=== PATIENT | male | born 1970 ===

== ENCOUNTER → 2017-04-26 | Day surgery (SDC) | payer OTHER ==
--- NOTE | 2017-04-25 16:39 | History and Physical: Surg Cnt ---
History & Physical Date Apr 25, 2017. Chief Complaint swelling History of Present Illness The patient is a 46 year old male with complaints of right sublingual mass Additional History Hepatic Disease: No Endocrine Disorder: No Kidney Disease: No Hypertension: No Heart Disease: No Bleeding Tendencies: No Infectious Diseases: No Allergies Coded Allergies: Codeine (Verified Allergy, Unknown, ., 04/25/17) Infliximab (Verified Allergy, Unknown, ., 04/25/17) Penicillins (Verified Allergy, Unknown, ., 04/25/17) Home Medications Unable to Obtain Active Prescriptions or Reported Meds Physical Examination Skin: warm/dry, no rash Eyes: normal inspection, EOMI, sclerae normal ENT: normal ENT inspection, pharynx normal Head: normocephalic, atraumatic Neck: supple, no adenopathy, trachea midline Respiratory/Chest: lungs clear, normal breath sounds, no respiratory distress Cardiovascular: regular rate, rhythm, no edema, no murmur Abdomen / GI: normal bowel sounds, non tender Back: normal inspection Extremities: normal inspection, normal range of motion Neurologic/Psych: no motor/sensory deficits, alert, normal reflexes, oriented x 3 Diagnosis right sublingual mass Plan of Treatment excision right sublingual mass
[~2017-04-26] VITALS: Wt 88.5 kg
[~2017-04-26] MED LIST: ATROPINE SULFATE 0.1 MG/ML 5ML SYR IV PRN; BENZOCAIN/TETRACA/BUTAM SPRAY 200 APPLN/20 GM SPRY ONE; CEFAZOLIN SOD 2000MG/10 ML IV PUSH IV ONE; DEXAMETHASONE SOD INJ 4 MG/ML VIAL ONE; EpHEDrine SULFATE INJ 50 MG/ML AMP IV PRN; FENTANYL CITRATE INJ 50 MCG/1 ML 2 ML VIAL IV PRN; FENTANYL CITRATE INJ 50 MCG/1 ML 2 ML VIAL ONE; HYDROmorphone INJ 1 MG/ML SYR IV PRN; IMD/2 PO; LACTATED RINGER'S 1000ML 1,000 ML IV SCH; LIDO 2%/EPINEPHRINE 1:100000 20 ML VIAL INFIL ONE; LIDOCAINE HCL 2% 2 ML VIAL (20MG/ML) ONE; LISI10TA PO; MIDAZOLAM HCL 1 MG/ML 2ML VIAL ONE; MUPIROCIN 2% OINT 22 GM TUBE ONE; ONDANSETRON INJ 2 MG/ML 2 ML VIAL IV PRN; ONDANSETRON INJ 2 MG/ML 2 ML VIAL ONE; OXYC-57 PO; OXYCODONE/ACETAMINOPHEN 5-325 TAB ONE; OXYCODONE/ACETAMINOPHEN 5-325 TAB PO PRN; PRLSR20 PO; PROMETHAZINE HCL INJ 12.5 MG in SODIUM CHLORIDE 0.9% 50ML 50 ML IV PRN; PROPOFOL IV EMULSION 10 MG/ML 20 ML VIAL IV ONE; SODIUM CHLORIDE 0.9% 1000ML 1,000 ML IV SCH; SULF500T36 PO
--- NOTE | 2017-04-26 09:03 | History & Physical Bridge Note ---
H&P Re-Evaluation Bridge Note: I have examined the patient, reviewed the History & Physical and in the interval since the performance of the History & Physical I have noted the following changes of clinical significance: No changes noted
[2017-04-26 14:37] VITALS: TEMP 37.2
--- NOTE | 2017-04-26 14:46 | [facility] Post Operative Brief Note ---
Immediate Operative Summary Operative Date Apr 26, 2017. Pre-Operative Diagnosis Right Sublingual Mass Post-Operative Diagnosis Same Procedure(s) Performed Right Sublingual Mass Excision Surgeon Dr. Mackenzie Cafeteria Cook Surgeon(s) None Estimated Blood Loss 10 ml Findings Mucocele right sublingual gland Specimens A. Right Sublingual Mass Drains none Anesthesia local with sedation Complication(s) None Disposition Recovery Room / PACU
--- NOTE | 2017-04-26 14:49 | [facility] Operative Report ---
Operative Report Operative Date Apr 26, 2017. Pre-Operative Diagnosis Right Sublingual Mass Post-Operative Diagnosis Same Procedure(s) Performed Right Sublingual Mass Excision Surgeon Dr. Mackenzie Transmission Technician Surgeon(s) None Estimated Blood Loss 10 ml Findings Mucocele right sublingual gland Specimens A. Right Sublingual Mass Drains none Anesthesia local with sedation Complication(s) None Disposition Recovery Room / PACU Implants 46-year-old gentleman with painful mass under the right tongue found to have a 1 x 3 cm swelling which turned out to be a mucocele of the right sublingual gland Indications Right sublingual mass Description of Procedure The patient was brought to the operating room and placed in the supine position. He was draped in the usual sterile manner. Local anesthesia was obtained by sprayed with Cetacaine and then injecting with 2% Xylocaine with 1 100,000 strength epinephrine. The mass was excised using the #12 blade the the tenotomy scissors and the Bovie carefully dissecting around the mass lifting up the mucosa controlling bleeders with the needlepoint Bovie and then dissecting the mucocele and the sublingual gland away from the surrounding vessels and also from the lingual nerve which coursed just underneath the sublingual gland and also preserving the Srinivas's duct. In this manner the entire sublingual gland and the mucocele was excised. The incision was closed with a continuous 4 -0 chromic suture. The patient her procedure well was taken recovery area. I attest to the content of the Intraoperative Record and any orders documented therein. Any exceptions are noted below.
--- NOTE | 2017-04-26 14:51 | Discharge Instructions-SurgCtr ---
Discharge Instructions Date of Service Apr 26, 2017. Visit Reason for Visit: Right Sublingual Mass Discharge Discharge Diagnosis / Problem: same Discharge Goals Goal(s): Decrease discomfort, Improve function, Improve disease control, Diagnostic testing, Therapeutic intervention Activity Recommendations Activity Limitations: resume your previous activity Anesthesia . Post Anesthesia Instructions: If you have had General Anesthesia or IV Sedation: * Do not drive today. * Resume driving when surgeon permits. * Do not make important decisions or sign legal documents today. * Call surgeon for: 1. Temperature elevations greater than 101 degrees F. 2. Uncontrollable pain. 3. Excessive bleeding. 4. Persistent nausea and vomiting. 5. Medication intolerance (nausea, vomiting or rash). * For nausea and vomiting use only clear liquids such as: tea, soda, bouillon until nausea subsides, then gradually increase diet as tolerated. * If you have any concerns or questions, call your surgeon's office. If physician is unavailable and it is an emergency, call 911 or go to the nearest emergency room. . Diet Recommendations Home Diet: special diet Diet Texture: Mechanical Soft (ground) Procedures Procedures Performed: Right Sublingual Mass Excision Pending Studies Studies pending at discharge: no Medical Emergencies . Who to Call and When: Medical Emergencies: If at any time you feel your situation is an emergency, please call 911 immediately. . Non-Emergent Contact Non-Emergency issues call your: Primary Care Provider . . "Provider Documentation" section prepared by Sangeetha Mackenzie. . [place] Drug Monitoring Program Search Results: no issues identified
--- NOTE | 2017-04-26 15:01 | Anesthesia Progress Nt - [facility] ---
Anesthesia Post Op Note Date & Time Apr 26, 2017 at 15:01 Vital Signs Pain Intensity: 4 Vital Signs Past 12 Hours Date Time Temp Pulse Resp B/P (MAP) Pulse Ox O2 Delivery O2 Flow Rate FiO2 04/26/17 14:37 37.2 92 16 145/96 (112) 95 Room Air 04/26/17 10:18 36.6 77 18 152/93 (112) 96 Room Air Notes Mental Status: alert / awake / arousable, participated in evaluation Pt Amnestic to Procedure: Yes Nausea / Vomiting: adequately controlled Pain: adequately controlled Airway Patency, RR, SpO2: stable & adequate BP & HR: stable & adequate Hydration State: stable & adequate Anesthetic Complications: no major complications apparent
[2017-04-26 15:03] VITALS: BP 159/101; PULSE 89; O2SAT 95
== END | disposition home or self-care (01) ==
LOC: X.SURG 09:59
PROVIDERS: ATTEND Otolaryngology
DX: K11.6 Mucocele of salivary gland (principal); I10 Essential (primary) hypertension; K21.9 Gastro-esophageal reflux disease without esophagitis; F17.210 Nicotine dependence, cigarettes, uncomplicated; Z79.899 Other long term (current) drug therapy